=== PATIENT | female | born 1975 ===

== ENCOUNTER 2024-10-14 10:22 | Day surgery (SDC) | payer OTHER ==
[2024-10-07 11:53] VITALS: BP 121/76
[2024-10-07 12:04] LABS: PH,URINE 5.5 (5.0-8.0); URINE APPEARANCE Clear; URINE BILIRRUBIN Negative (NEGATIVE); URINE BLOOD Trace; URINE COLOR Yellow; URINE GLUCOSE Negative (NEGATIVE); URINE KETONE Negative (NEGATIVE); URINE LEUKOCYTE Negative; URINE NITRATE Negative; URINE PROTEIN Negative (NEGATIVE); URINE UROBILINOGEN 0.2 E.U./dl
[2024-10-07 12:08] LABS: URINE BACTERIA 316.9 uL (0.0-1933); URINE EPITHELIAL CELLS 21.6 uL (0.0-38.8); URINE RBC 3.9 uL (0.0-20.8); URINE WBC 8.6 uL (0.0-23.2)
[2024-10-07 12:13] LABS: BASO % 0.7 % (0.1-1.2); EOS # 0.12 (0.04-0.54); HEMATOCRIT 38.4 % (34.1-44.9); HEMOGLOBIN 12.7 g/dL (11.2-15.7); LYMPH # 2.17 (1.18-3.74); LYMPH % 35.5 % (19.3-53.1); MEAN CORPUSCULAR HEMOGLOBIN 29.8 pg (25.6-32.2); MONO % 4.9 % (4.7-12.5); NEUT # 3.47 (1.56-6.13); NEUT % 56.7 % (34.0-71.1); PLATELET COUNT 291 K/uL (163-369); RED BLOOD COUNT 4.26 M/uL (3.93-5.22); RED CELL DISTRIBUTION WIDTH 14.3 % (11.6-14.4)
[2024-10-07 12:55] LABS: INR 0.99; PARTIAL THROMBOPLASTIN TIME 28.4 SECONDS (22.0-34.0); PROTHROMBIN TIME 10.8 SECONDS (9.0-11.5)
[2024-10-07 13:05] LABS: ALBUMIN 4.1 gm/dL (3.4-5.0); BILIRUBIN TOTAL 0.49 mg/dL (0.3-1.2); CALCIUM 9.5 mg/dL (8.5-10.1); CREATININE SERUM 0.58 mg/dL (0.55-1.02); GFR 110.49; GLOBULINA 2.9 G/DL (2.4-3.5); POTASSIUM 3.72 mEq/L (3.5-5.1)
[~2024-10-14] VITALS: Ht 170.2 cm; Wt 78.9 kg
[~2024-10-14 10:22] MED LIST: AMLODIPINE-OLM1 EAC2 PO; COZAAR25 MG PO; ZOLOFT50 MG PO
[2024-10-14] MEDS ORDERED: POVIDONE-IODINE 118 ML BOTT TOP ONE ×2 (12:19→12:30)
[2024-10-14] MEDS ORDERED: KETOROLAC TROMETHAMINE 60 MG VIAL IM STA (18:10)
[2024-10-14] MEDS ORDERED: RINGERS SOLUTION,LACTATED 1,000 ML IV SCH (18:15)
== END 2024-10-14 20:10 | disposition home or self-care (01) ==
LOC: CIR.AMB 10:22
PROVIDERS: ATTEND Obstetrics & Gynecology
DX: N84.0 Polyp of corpus uteri (principal); N72 Inflammatory disease of cervix uteri; N84.1 Polyp of cervix uteri